=== PATIENT | male | born 1945 ===

== ENCOUNTER 2016-08-13 18:43 | Emergency (ER) | payer SELFPAY ==
[2016-08-13 18:43] VITALS: BMI 21.6
[2016-08-13] MEDS ORDERED: Iohexol 240 (50 ml) PO STA (20:09)
[2016-08-13] MEDS ORDERED: Sodium Chloride 0.9% 500 ML IV ONE ×2 (20:09→20:42)
[2016-08-13 20:30] LABS: BASO # 0.1 K/uL (0.0-0.2); BASO % 0.5 % (0.0-2.0); EOS # 2.2 K/uL (0.0-0.7); EOS % 20.5 % (0.0-4.0); HEMATOCRIT 37.1 % (35.0-51.0); LYMPH # 0.9 K/uL (1.0-4.3); LYMPH % 8.6 % (20.0-40.0); MEAN CELL VOLUME 86.9 fL (80.0-94.0); MEAN CORPUSCULAR HEMOGLOBIN 28.8 pg (27.0-31.0); MEAN CORPUSCULAR HGB CONC 33.1 g/dL (33.0-37.0); MEAN PLATELET VOLUME 7.3 fL (7.2-11.7); MONO # 0.8 K/uL (0.0-0.8); MONO % 7.3 % (0.0-10.0); PLATELET COUNT 202 K/uL (130-400); RED CELL DISTRIBUTION WIDTH 16.7 % (11.5-14.5)
[2016-08-13] MEDS ORDERED: Iohexol 240 (50 ml) ONE (20:42)
[2016-08-13 20:45] LABS: RBC URINE 8 /hpf (0-3); URINE BACTERIA MOD (<OCC); URINE BILIRUBIN NEGATIVE (NEGATIVE); URINE BLOOD TRACE (NEGATIVE); URINE COLOR Yellow (YELLOW); URINE GLUCOSE (UA) NORMAL (Normal); URINE KETONE NEGATIVE (NEGATIVE); URINE LEUKOCYTE ESTERASE 3+ Leu/uL (Negative); URINE PROTEIN NEGATIVE (NEGATIVE); WBC URINE 173 /hpf (0-5)
[2016-08-13 21:02] LABS: BASOPHIL 1 % (0-2); EOSINOPHIL 20 % (0-4); NEUTROPHIL 62 % (50-75); TOTAL CELLS COUNTED 100
[2016-08-13 21:10] LABS: CHLORIDE 108 mmol/L (98-107)
[2016-08-13 21:11] LABS: POTASSIUM 3.5 mmol/L (3.6-5.2); SODIUM 138 mmol/L (132-148)
[2016-08-13 21:13] LABS: ALB/GLOB RATIO 0.8 (1.0-2.1); ALKALINE PHOSPHATASE 94 U/L (38-126); AST/SGOT 58 U/L (17-59); BILIRUBIN,TOTAL 1.8 mg/dL (0.2-1.3); BLOOD UREA NITROGEN 5 mg/dL (9-20); CARBON DIOXIDE 21 mmol/L (22-30); GFR AFRICAN-AMERICAN > 60; TOTAL PROTEIN 6.4 g/dL (6.3-8.3)
[2016-08-13 21:14] LABS: ALT/SGPT 37 U/L (21-72); CALCIUM 7.9 mg/dl (8.6-10.4); GLUCOSE,RANDOM 77 mg/dL (75-110)
[2016-08-13] MEDS ORDERED: Iohexol 350mg/ml 100 ML ONE (21:47)
[2016-08-13 22:27] VITALS: RESP 18
--- NOTE | 2016-08-13 22:37 | CT ---
EXAM: CT Abdomen and Pelvis With Intravenous Contrast CLINICAL HISTORY: 70 years old, male; Pain; Abdominal pain; Flank; Left lower quadrant (llq); Additional info: Llq pain TECHNIQUE: Axial computed tomography images of the abdomen and pelvis with intravenous contrast. This CT exam was performed using one or more of the following dose reduction techniques: automated exposure control, adjustment of the mA and/or kV according to patient size, and/or use of iterative reconstruction technique. Coronal and sagittal reformatted images were created and reviewed. CONTRAST: 100 mL of OMNIPAQUEC 350 administered intravenously. COMPARISON: No relevant prior studies available. FINDINGS: Lower thorax: Trace bibasilar atelectasis. ABDOMEN: Liver: The liver is decreased in size. Gallbladder and bile ducts: The gallbladder is decompressed, without calcified stones. No significant intra- or extrahepatic biliary ductal dilation. Pancreas: An 8mm focus of decreased attenuation is identified within the body of the pancreas. The pancreas otherwise enhances homogeneously, without ductal dilation or a discrete mass. Spleen: The spleen is enlarged. Adrenals: No acute findings. Kidneys and ureters: No acute findings. No hydronephrosis or renal calculi. No discrete solid mass. PELVIS: Bladder: No acute findings. Reproductive: Gynecomastia is present. Appendix: The appendix is not discretely visualized. ABDOMEN and PELVIS: Stomach and bowel: Oral contrast extends to the distal small bowel, without obstruction. Moderate mural thickening is identified within multiple loops of distal small bowel, as well as within the distal colon, findings suggestive of diffuse enteritis. A fat and omental containing umbilical hernia is present. Peritoneum: No significant fluid collection. No gross free air. Lymph nodes: Multiple minimally enlarged lymph nodes are identified within both the mesentery, retroperitoneum, as well as within the pelvis the and bilateral groins, a nonspecific finding. Vasculature: Extensive distal esophageal, splenic and mesenteric varices are identified, consistent with portal hypertension. The portal vein is patent. Bones: Moderate degenerative disease, without acute fracture. IMPRESSION: Findings suggesting a diffuse enteritis, without a drainable fluid collection or free air. Significant portal hypertension. Multiple additional nonacute findings are detailed above.
--- NOTE | 2016-08-13 23:19 | C.PDOC ---
Time Seen by Provider: 08/13/16 19:55 Chief Complaint (Nursing): Abdominal Pain History Per: Patient Onset/Duration Of Symptoms: Days (?) Current Symptoms Are (Timing): Still Present Severity: Moderate Location Of Pain/Discomfort: LLQ Quality Of Discomfort: Unable To Describe Alleviating Factors: None Additional History Per: Prior Records Past Medical History Reviewed: Historical Data, Nursing Documentation, Vital Signs Vital Signs: Last Vital Signs Temp 99.5 F 08/13/16 22:15 Pulse 81 08/13/16 22:15 Resp 18 08/13/16 22:15 BP 147/86 08/13/16 22:15 Pulse Ox 98 08/13/16 22:15 - Medical History PMH: HTN (DOES NOT TAKE MEDS) Surgical History: No Surg Hx Family History: States: Unknown Family Hx - Social History Hx Alcohol Use: No (denies) Hx Substance Use: Yes - Immunization History Hx Tetanus Toxoid Vaccination: No Hx Influenza Vaccination: No Hx Pneumococcal Vaccination: No Review Of Systems Except As Marked, All Systems Reviewed And Found Negative. Constitutional: Negative for: Fever Cardiovascular: Negative for: Chest Pain Respiratory: Negative for: Shortness of Breath Gastrointestinal: Positive for: Abdominal Pain. Negative for: Vomiting Musculoskeletal: Negative for: Neck Pain Neurological: Negative for: Weakness, Seizures Physical Exam - Physical Exam Appears: Non-toxic, No Acute Distress, Unkempt Skin: Normal Color, Warm, Dry Head: Atraumatic, Normacephalic Eye(s): bilateral: PERRL, EOMI Neck: Normal ROM, Supple Cardiovascular: Rhythm Regular Respiratory: Normal Breath Sounds, No Accessory Muscle Use Gastrointestinal/Abdominal: Soft, No Guarding, No Rebound Back: No CVA Tenderness Male Genital: No Testicular Tenderness, No Testicular Swelling, No Scrotal Swelling Extremity: Normal ROM Neurological/Psych: Oriented x3, Normal Motor, Normal Sensation ED Course And Treatment - Laboratory Results Result Diagrams: 08/13/16 20:27 08/13/16 20:27 Interpretation Of Abnormal: UTI ECG: Interpreted By Me, Viewed By Me ECG Rhythm: Sinus Rhythm ECG Interpretation: No Acute Changes Rate From EC O2 Sat by Pulse Oximetry: 98 Pulse Ox Interpretation: Normal - CT Scan/US CT abd/pelvi Other Rad Studies (CT/US): Read By Radiologist, Radiology Report Reviewed CT/US Interpretation: IMPRESSION: . Findings suggesting a diffuse enteritis, without a drainable fluid collection. or free air. Significant portal hypertension. Multiple additional nonacute findings are detailed above. Progress - Interventions Interventions:: Observation, Intravenous fluid - Medications Administered Intravenous: Antiemetic - Data Reviewed Data Reviewed: Lab, Diagnostic imaging, Old records - Patient Status Patient status: Mostly improved - Continuity of Care Discussed patient case with:: Patient, ED Nurse - Patient Plan Patient Plan: Discharge, F/U with PCP Disposition Counseled Patient/Family Regarding: Studies Performed, Diagnosis, Need For Followup, Rx Given - Disposition Referrals: [facility] [Outside] Disposition: HOME/ ROUTINE Disposition Time: 23:20 Condition: IMPROVED Additional Instructions: Drink plenty of fluids. Follow up with your doctor or in the clinic for further evaluation and treatment. Return to the ER if you develop fever, vomiting, worsening of symptoms or if you have any other concerns. Prescriptions: Ciprofloxacin [Cipro] 1 tab PO BID #14 tab Instructions: Urinary Tract Infection in Men (ED) - Clinical Impression Clinical Impression: Abdominal pain, UTI (urinary tract infection), Enteritis
[2016-08-13 23:51] VITALS: BP 176/82; PULSE 89; TEMP 98.7; O2SAT 97
--- NOTE | 2016-08-14 11:47 | CARD ---
APPROVED REPORT EKG Measurement Heart [id number] <Conclusion> Normal sinus rhythm Normal ECG
== END 2016-08-14 00:05 | disposition home or self-care (01) ==
LOC: C.ER 18:43
DX: K52.9 Noninfective gastroenteritis and colitis, unspecified (principal); N39.0 Urinary tract infection, site not specified; I10 Essential (primary) hypertension; Z91.19 Patient's noncompliance with other medical treatment and regimen
CPT/HCPCS: 74177; 80053; 81001; 83690; 85025; 87086; 87181; 93005; 96374; 96375; 99285; C9113; G0480; J2765; J7040; Q9967

== ENCOUNTER 2017-08-20 14:40 | Emergency (ER) | payer MEDICAID ==
[2017-08-20 15:00] VITALS: BMI 29.5
[2017-08-20] MEDS ORDERED: Sodium Chloride 0.9% 1,000 ML IV ONE (15:02)
[2017-08-20] MEDS ORDERED: Naloxone 0.4 mg/ml Inj (Adult) IVP STA (15:02)
--- NOTE | 2017-08-20 15:05 | C.PDOC ---
History Of Present Illness 71yo male, brought to ER by EMS after he was found lying on the ground intoxicated. Per EMS, patient's friends who were standing nearby reported the patient had been drinking heavily throughout the day. Patient is altered and not able to respond to questions, so a full HPI and ROS is limited. Time Seen by Provider: 08/20/17 14:58 Chief Complaint (Nursing): Substance Abuse History Per: EMS History/Exam Limitations: intoxication Onset/Duration Of Symptoms: Hrs Current Symptoms Are (Timing): Still Present Modifying Factor(s): Alcohol Past Medical History Reviewed: Historical Data, Nursing Documentation, Vital Signs Vital Signs: Last Vital Signs Temp 97.8 F 08/20/17 19:55 Pulse 70 08/20/17 19:55 Resp 20 08/20/17 19:55 BP 112/72 08/20/17 19:55 Pulse Ox 97 08/20/17 19:55 - Medical History PMH: Depression, HTN (DOES NOT TAKE MEDS) Denies: Diabetes, Hepatitis, HIV, Chronic Kidney Disease, Seizures, Sexually Transmitted Disease Surgical History: No Surg Hx Family History: States: Unknown Family Hx - Social History Hx Alcohol Use: No (denies) Hx Substance Use: Yes - Immunization History Hx Tetanus Toxoid Vaccination: No Hx Influenza Vaccination: No Hx Pneumococcal Vaccination: No Review Of Systems Review Of Systems: ROS cannot be obtained secondary to pt's inabilty to answer questions. Physical Exam - Physical Exam Skin: Normal Color Head: Atraumatic Eye(s): bilateral: PERRL Oral Mucosa: Moist Cardiovascular: Rhythm Regular Respiratory: Normal Breath Sounds, No Decreased Breath Sounds, No Accessory Muscle Use, No Wheezing Neurological/Psych: No Oriented x3, No Response To Commands Pain Response: No Response To Pain (no response to sternal rub or nail press) ED Course And Treatment - Laboratory Results Result Diagrams: 08/20/17 15:13 08/20/17 15:13 Lab Interpretation: Abnormal (ETOH 252) ECG: Interpreted By Me ECG Rhythm: Sinus Rhythm ECG Interpretation: Normal O2 Sat by Pulse Oximetry: 96 (RA) Pulse Ox Interpretation: Normal Reevaluation Time: 20:44 Reassessment Condition: Improved (Patient now awake and alert after remaining unresponsive for several hours. He states he is missing his walker and his wallet. Advised that he was brought by EMS in his current condition. Pt provided a walker for discharge.) Medical Decision Making Medical Decision Making: Impression: Alcohol Intoxication Plan: -- Labs -- EKG -- Urinalysis -- Narcan 2mg IV -- IV Fluids Disposition Counseled Patient/Family Regarding: Studies Performed, Diagnosis, Need For Followup - Disposition Referrals: [facility] [Outside] Disposition: HOME/ ROUTINE Disposition Time: 20:46 Condition: IMPROVED Instructions: Alcohol Abuse and Alcoholism (DC) Forms: [employer] (Kiswahili) - Clinical Impression Clinical Impression: Alcohol abuse - Scribe Statement The provider has reviewed the documentation as recorded by the Scribe (Sarah Colin) Provider Attestation: All medical record entries made by the Scribe were at my direction and personally dictated by me. I have reviewed the chart and agree that the record accurately reflects my personal performance of the history, physical exam, medical decision making, and the department course for this patient. I have also personally directed, reviewed, and agree with the discharge instructions and disposition.
[2017-08-20 15:17] LABS: BASO % 1.1 % (0.0-2.0); EOS # 0.1 K/uL (0.0-0.7); EOS % 1.8 % (0.0-4.0); HEMOGLOBIN 13.5 g/dL (12.0-18.0); LYMPH % 45.2 % (20.0-40.0); MEAN CELL VOLUME 99.9 fL (80.0-94.0); MEAN CORPUSCULAR HEMOGLOBIN 34.2 pg (27.0-31.0); MEAN CORPUSCULAR HGB CONC 34.2 g/dL (33.0-37.0); MEAN PLATELET VOLUME 7.7 fL (7.2-11.7); MONO # 0.4 K/uL (0.0-0.8); NEUT # 1.9 K/uL (1.8-7.0); NEUT % 43.9 % (50.0-75.0); RBC 3.97 Mil/uL (4.40-5.90); RED CELL DISTRIBUTION WIDTH 13.8 % (11.5-14.5); WHITE BLOOD COUNT 4.4 K/uL (4.8-10.8)
[2017-08-20 15:23] LABS: SQUAMOUS EPITHIAL 1 /hpf (0-5); URINE BACTERIA RARE (<OCC); URINE BILIRUBIN NEGATIVE (NEGATIVE); URINE BLOOD NEGATIVE (NEGATIVE); URINE CLARITY Clear (Clear); URINE COLOR Yellow (YELLOW); URINE GLUCOSE (UA) NORMAL (Normal); URINE HYALINE CAST 0-2 /lpf (0-2); URINE LEUKOCYTE ESTERASE TRACE Leu/uL (Negative); URINE PROTEIN NEGATIVE (NEGATIVE); URINE UROBILINOGEN NORMAL mg/dL (0.2-1.0)
[2017-08-20 15:28] LABS: VENOUS BLOOD GAS BASE EXCESS -4.1 mmol/L (0.0-2.0); VENOUS BLOOD GAS PCO2 44 mmHg (40-60); VENOUS BLOOD GAS PO2 67 mm/Hg (30-55); VENOUS BLOOD PH 7.31 (7.32-7.43)
[2017-08-20 15:31] LABS: ALB/GLOB RATIO 1.1 (1.0-2.1); ALBUMIN 4.2 g/dL (3.5-5.0); ALT/SGPT 111 U/L (21-72); AST/SGOT 111 U/L (17-59); BLOOD UREA NITROGEN 9 mg/dL (9-20); CALCIUM 8.7 mg/dl (8.6-10.4); GFR AFRICAN-AMERICAN > 60; GFR NON-AFRICAN AMERICAN > 60
[2017-08-20 15:34] LABS: BARBITURATES, UR NEGATIVE (NEGATIVE); BENZODIAZEPINES, UR NEGATIVE (NEGATIVE); OPIATES, UR NEGATIVE (NEGATIVE); PHENCYCLIDINE, UR NEGATIVE (NEGATIVE)
[2017-08-20 18:47] VITALS: RESP 20
[2017-08-20] MEDS ORDERED: Naloxone 0.4 mg/ml Inj (Adult) ONE (18:51)
[2017-08-20 19:56] VITALS: PULSE 70; TEMP 97.8
[2017-08-20 20:46] VITALS: O2SAT 96
[2017-08-20 21:05] VITALS: BP 158/98
== END 2017-08-20 21:26 | disposition home or self-care (01) ==
LOC: C.ER 14:40
DX: F10.129 Alcohol abuse with intoxication, unspecified (principal); I10 Essential (primary) hypertension
CPT/HCPCS: 80053; 80320; 80324; 80345; 80346; 80349; 80353; 80358; 80361; 81001; 82803; 82948; 83992; 85025; 96361; 96374; 99285; J2310; J7030